=== PATIENT | female | born 1945 | race Caucasian/White ===

== ENCOUNTER → 2019-02-25 | Outpatient (CLI) | payer MEDICARE, BC ==
[~2019-02-25] MED LIST: REGADENOSON 0.4 MG/5 ML DISP.SYRIN. IV ONE
--- NOTE | 2019-02-25 09:26 | PCVCIMAG ---
APPROVED REPORT Study performed: 02/25/2019 08:11:08 EXAM: Comprehensive 2D, Doppler, and color-flow Echocardiogram Patient Location: Echo lab Status: routine BSA: 1.46 HR: 88 bpmBP: 100/60 mmHg Rhythm: NSR Other Information Study Quality: Good Risk Factors: Cardiac Risk Factors: HTN, Hyperlipidemia, Smoking Indications Dyspnea Elevated calcium score 2D Dimensions IVSd: 11.98 (7-11mm)LVOT Diam: 18.92 (18-24mm) LVDd: 30.10 mm PWd: 10.62 (7-11mm)Ascending Ao: 31.89 (22-36mm) LVDs: 22.54 (25-40mm) Left Atrium: 23.66 (27-40mm) Aortic Root: 32.10 mm LV Single Plane 4CH: 56.78 % LV Single Plane 2CH: 55.61 % Biplane EF: 56.0 % Volumes Left Atrial Volume (Systole) Single Plane 4CH: 14.59 mLSingle Plane 2CH: 13.17 mL LA ESV Index: 10.00 mL/m2 Aortic Valve AoV Peak Ned.: 1.67 m/s AO Peak Gr.: 11.11 mmHgLVOT Max P.90 mmHg LVOT Max V: 0.85 m/s MARCO Vmax: 1.44 cm2 Mitral Valve E/A Ratio: 0.8 MV Decel. Time: 202.05 ms MV E Max Ned.: 0.67 m/s MV A Ned.: 0.86 m/s IVRT: 79.58 ms TDI E/Lateral E': 9.57E/Medial E': 9.57 Medial E' Ned.: 0.07 m/s Lateral E' Ned.: 0.07 m/s Pulmonary Valve PV Peak Gr.: 3.61 mmHg Pulmonary Vein P Vein S: 0.68 m/sP Vein A: 0.57 m/s P Vein D: 0.51 m/sP Vein A Dur.: 96.9 msec P Vein S/D Ratio: 1.33 Tricuspid Valve TR Peak Ned.: 2.57 m/s TR Peak Gr.: 26.48 mmHg Left Ventricle The left ventricle is normal size. There is normal LV segmental wall motion. There is normal left ventricular wall thickness. Left ventricular systolic function is normal. The left ventricular ejection fraction is within the normal range. LVEF is 55-60%. Right Ventricle The right ventricle is normal size. The right ventricular systolic function is normal. Atria The left atrium size is normal. The right atrium size is normal. Aortic Valve The aortic valve is normal in structure. No aortic regurgitation is present. There is no aortic valvular stenosis. Mitral Valve The mitral valve is normal in structure. There is no mitral valve regurgitation noted. No evidence of mitral valve stenosis. Tricuspid Valve The tricuspid valve is normal in structure. Trace tricuspid regurgitation. Pulmonary artery pressure is 34mmhg. Pulmonic Valve The pulmonary valve is normal in structure. There is no pulmonic valvular regurgitation. Great Vessels The aortic root is normal in size. IVC is normal in size and collapses >50% with inspiration. Pericardium There is no pericardial effusion. <Conclusion> The left ventricle is normal size. LVEF is 55-60%. The aortic valve is normal in structure. The mitral valve is normal in structure. The tricuspid valve is normal in structure. The pulmonary valve is normal in structure. There is no pericardial effusion.
--- NOTE | 2019-03-03 09:49 | PCVCIMAG ---
APPROVED REPORT Imaging Protocol: Rest Tc-99m/Stress Tc-99m 1 day Study performed: 02/25/2019 09:24:31 Indication: Chest pain, Dyspnea, High Ca Score Patient Location: Out-Patient Stress Nurse: May Enriquez RN [place] Tech:Fadia Lambert [facility] Ht: 4 ft 11 in Wt: 115 lbs BSA: 1.46 m2 HR: 77 bpm BP: 139/65 mmHg BMI: 23.22 Rhythm: Sinus Rhythm Medical History Medical History: Hyperlipidemia, HTN, Current Smoker Medications: Atorvastatin, Benazepril Allergies: No known drug allergies Cardiac Risk Factors: Age Pretest Chest Pain Characteristics: No chest pain Resting Data Rest SPECT myocardial perfusion imaging was performed in supine position 45 minutes following the intravenous injection of 10.1 mCi of Tc-99m Sestamibi. Time of rest injection: 0850 Date: 02/25/2019 Administration Route: IV Administration Site: Right Arm Pharmacologic Stress Pharmacologic stress test was performed by injecting Regadenoson 0.4 mg IV push over 10-15 seconds immediately followed by the intravenous injection of 31.7 mCi of Tc-99m Sestamibi. Time of stress injection: 1000 Date: 02/25/2019 Administration Route: IV Administration Site: Right Arm Gated Stress SPECT was performed 45 minutes after stress injection. The images were gated to evaluate regional wall motion and calculate left ventricular ejection fraction. Stress Test Details Stress Test: Pharmacologic stress testing performed using 0.4 mg of regadenoson per 5 mL given IV over 10 seconds. Reason for pharmacologic stress test: physical limitation. HRMax Heart Rate (APMHR): 149 bpm Resting HR: 77 bpmTarget HR (85% APMHR): 126 bpm Max HR Achieved: 105 bpm % of APMHR: 70 Recovery HR: 100 bpm BP Resting BP: 139/65 mmHg Max BP: 141/71 mmHg Recovery BP: 132/67 mmHg ECG Resting ECG: Sinus Rhythm Stress ECG: Sinus Tachycardia Arrhythmia: None Recovery ECG: Sinus Tachycardia Clinical Reason for Termination: Completed protocol Stress Symptoms: Chest heaviness, Dyspnea Symptoms resolved during recovery. Stress ECG Conclusion 1. Adequate response to intravenous Lexiscan 2. Inadequate heart rate for ECG diagnosis Study Data Post stress, the left ventricular ejection was 70%.. SSS: 0 SRS: 8 SDS: 0 TID = 0.84. Perfusion There is a medium area of moderately reduced uptake in the entire segment of the inferior wall which is seen on the stress images as well as the resting images. This area thickens and moves normally and is most consistent with attenuation artifact. Wall Motion Normal left ventricular wall motion. Nuclear Conclusion ECG Findings: non-ischemic Clinical Findings: negative for ischemia Nuclear Findings: negative for ischemia Exercise Capacity: not assessed Left Ventricular Function: normal 1. Low risk study based on absence of inducible ischemia 2. Post exercise left ventricular ejection fraction of 70% with normal contractility <Conclusion> 1. Adequate response to intravenous Lexiscan 2. Inadequate heart rate for ECG diagnosis
== END | disposition home or self-care (01) ==
LOC: PCVCIMAG 08:29
PROVIDERS: ATTEND Internal Medicine
DX: R94.39 Abnormal result of other cardiovascular function study (principal); J44.9 Chronic obstructive pulmonary disease, unspecified; I10 Essential (primary) hypertension; E11.9 Type 2 diabetes mellitus without complications; E03.9 Hypothyroidism, unspecified; G47.30 Sleep apnea, unspecified; F17.210 Nicotine dependence, cigarettes, uncomplicated; Z83.3 Family history of diabetes mellitus; Z82.49 Family history of ischemic heart disease and other diseases of the circulatory system; Z88.8 Allergy status to other drugs, medicaments and biological substances; Z80.9 Family history of malignant neoplasm, unspecified
CPT/HCPCS: 78452; 93017; 93306; A9500; J2785